=== PATIENT | female | born 1965 | race Caucasian/White ===

== ENCOUNTER 2017-07-13 09:55 | Emergency (ER) | payer OTHER ==
[~2017-07-13] VITALS: Ht 162.5 cm; Wt 52.2 kg
[~2017-07-13 09:55] MED LIST: AUGMENTIN 875875 MG PO; CIPROFLOXACIN500 MG PO; IBUPROFEN600 MG PO; KEFLEX500 MG PO; MOTRIN800 MG PO; SEROQUEL25 MG; TRAMADOL HCL50 MG PO; TYLENOL WITH CO1 TA1 PO; VICODIN 5/500 505 MG PO; ZOLOFT100 MG PO
[2017-07-13 10:03] VITALS: BP 148/88
[2017-07-13] MEDS ORDERED: NAPROSYN500 MG PO (11:31)
== END 2017-07-13 11:42 | disposition home or self-care (01) ==
LOC: ED 09:55
DX: S60.211A Contusion of right wrist, initial encounter (principal); F17.200 Nicotine dependence, unspecified, uncomplicated; Z98.51 Tubal ligation status; W22.8XXA Striking against or struck by other objects, initial encounter; Y93.89 Activity, other specified; Y92.89 Other specified places as the place of occurrence of the external cause; Y99.9 Unspecified external cause status

== ENCOUNTER → 2017-07-22 | Outpatient (CLI) | payer SELFPAY ==
[~2017-07-22] MED LIST changes: +NAPROSYN500 MG PO
[2017-07-22 14:48] LABS: BASO # 0.1 10*3/uL (0.0-0.1); BASO % 0.7 % (0.0-1.0); HEMATOCRIT 41.5 % (37.0-47.0); HEMOGLOBIN 13.8 g/dl (12.0-16.0); LYMPH % 28.5 % (27.0-41.0); MEAN CELL VOLUME 86.6 fl (81.0-99.0); MEAN CORPUSCULAR HGB 28.8 pg (27.0-31.0); MEAN CORPUSCULAR HGB CONC 33.3 g/dl (33.0-37.0); MEAN PLATELET VOLUME 8.9 fl (9.6-12.3); MONO # 0.9 10*3/uL (0.1-1.0); MONO % 8.5 % (3.0-9.0); NEUT # 6.6 10*3/uL (2.3-7.9); NEUT % 62.1 % (47.0-73.0); PLATELET COUNT AUTOMATED 348 10*3/uL (130-400); RED BLOOD COUNT 4.79 10*6/uL (4.10-5.10); RED CELL DISTRI WIDTH 12.8 % (0-14.5); WHITE BLOOD COUNT 10.6 10*3/uL (4.8-10.8)
[2017-07-22 15:15] LABS: ALBUMIN 3.6 gm/dl (3.1-4.5); ALKALINE PHOSPHATASE 85 U/L (45-117); BILIRUBIN, DIRECT < 0.1 mg/dL (0.0-0.2); BUN 12 mg/dl (7-24); CHLORIDE 109 mmol/L (98-107); CHOLESTEROL 188 mg/dL (<200); CREATININE 0.75 mg/dL (0.55-1.02); FREE T4 0.77 ng/dl (0.76-1.46); HDL CHOLESTEROL 42 mg/dl (40-60); LDL CHOLESTEROL 120 mg/dL (9-159); POTASSIUM 3.4 mmol/L (3.5-5.1); SGOT/AST 10 IU/L (3-35); SGPT/ALT 13 U/L (12-78); SODIUM 139 mmol/L (136-145); T3 UPTAKE 28 % (31-39); TOTAL PROTEIN 7.3 gm/dL (6.4-8.2); TRIGLYCERIDES 130 mg/dl (<150); VLDL CHOLESTEROL 26 mg/dL (6-40)
== END | disposition home or self-care (01) ==
LOC: LAB 14:12
PROVIDERS: Nurse Practitioner Family
DX: Z79.899 Other long term (current) drug therapy (principal)

== ENCOUNTER 2025-08-20 06:31 | Emergency (ER) | payer OTHER ==
[~2025-08-20] VITALS: Ht 170.1 cm; Wt 72.6 kg
[2025-08-20 06:40] VITALS: BP 155/81
[2025-08-20] MEDS ORDERED: SODIUM CHLORIDE 0.9% 100 ML BAG IV ONE (07:20)
[2025-08-20] MEDS ORDERED: IOHEXOL 350 MG/ML 100 ML VIAL IV ONE ×2 (07:20→07:43)
[2025-08-20] MEDS ORDERED: SODIUM CHLORIDE 0.9% 100 ML IV ONE (07:43)
[2025-08-20] MEDS ORDERED: SODIUM CHLORIDE 0.9% 1,000 ML IV ONE (07:45)
[2025-08-20 08:11] LABS: ACT PARTIAL THROMBO TIME 24.6 SECONDS (20.0-32.1)
[2025-08-20 08:21] LABS: BUN 12 mg/dl (9-23)
[2025-08-20 08:33] LABS: BASO # 0.1 10*3/uL (0.0-0.1); BASO % 0.6 % (0.0-1.0); EOS # 0.0 10*3/uL (0.0-0.4); EOS % 0.1 % (1.0-4.0); MEAN CELL VOLUME 90.1 fl (81.0-99.0); MEAN CORPUSCULAR HGB 29.6 pg (27.0-31.0); MEAN PLATELET VOLUME 9.2 fl (9.6-12.3); MONO # 0.8 10*3/uL (0.1-1.0); MONO % 5.8 % (3.0-9.0); NEUT # 10.1 10*3/uL (2.3-7.9); NEUT % 77.5 % (47.0-73.0); NUCLEATED RED BLOOD CELL 0.0 % (0.0-0.0); NUCLEATED RED BLOOD CELL 0.0 10*3/uL (0.0-0.0); PLATELET COUNT AUTOMATED 334 10*3/uL (130-400); RED CELL DISTRI WIDTH 12.6 % (0-14.5)
== END 2025-08-20 08:35 | disposition short-term general hospital (02) ==
LOC: ED 06:31
PROVIDERS: Emergency Medicine
DX: I63.9 Cerebral infarction, unspecified (principal)